=== PATIENT | female | born 1940 | race Two or more races ===

== ENCOUNTER 2021-12-12 08:19 | Outpatient (CLI) | payer OTHER ==
[~2021-12-12 08:19] MED LIST: SYNTHROID75 MCG
== END 2021-12-12 08:29 | disposition home or self-care (01) ==
LOC: MAMO-SONO 08:19
PROVIDERS: ATTEND Internal Medicine Cardiovascular Disease
DX: N63.11 Unspecified lump in the right breast, upper outer quadrant (principal)